=== PATIENT | male | born 1960 | race Caucasian/White ===

== ENCOUNTER 2018-05-24 11:52 | Emergency (ER) | payer OTHER ==
[~2018-05-24] VITALS: Ht 167.6 cm; Wt 79.4 kg
[2018-05-24 11:58] VITALS: BP 145/94
--- NOTE | 2018-05-24 12:10 | NUR ---
58 yo m bib w/ c/o abdominal pain and diarrhea/fevers x 3days. On sunday went fishing in [place], where he started feeling sick. Pt reports thin, watery, black stools. 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 Pt presents without fever at this time, pt states having fever last night of 100.4, Reports nausea but no vomiting. Reports that he took acetaminophen earlier in the week, but none today. aaox4. rr even and unlabored, lungs clear. bs active x4 with abd round tender. er md made aware. pt positioned for comfort. will continue to monitor. hx DM, HTN rx cipro, loperamida, butilhioscina
--- NOTE | 2018-05-24 12:27 | NUR ---
PT AMBULATED TO THE RESTROOM WITH STEADY GAIT
[2018-05-24] MEDS ORDERED: KETOROLAC 30 MG/ML VIAL IVP ONE (12:40)
[2018-05-24] MEDS ORDERED: ONDANSETRON 4 MG/2 ML VIAL IVP ONE (12:40)
--- NOTE | 2018-05-24 12:40 | NUR ---
Patient being evaluated by physician at bedside.
[2018-05-24 13:23] VITALS: BP 145/90
--- NOTE | 2018-05-24 13:23 | NUR ---
Patient discharged with v/s stable. Written and verbal after care instructions given and explained. Patient alert, oriented and verbalized understanding of instructions. Ambulatory with steady gait. All questions addressed prior to discharge. ID band removed. Patient advised to follow up with PMD. Rx of flagyl, motrin, zofran given. Patient educated on indication of medication including possible reaction and side effects. Opportunity to ask questions provided and answered.
== END 2018-05-24 13:23 | disposition home or self-care (01) ==
LOC: MED 11:52
DX: R10.13 Epigastric pain (principal); R11.0 Nausea; R19.7 Diarrhea, unspecified; R50.9 Fever, unspecified; E11.9 Type 2 diabetes mellitus without complications; I10 Essential (primary) hypertension
CPT/HCPCS: 82948; 96374; 96375; 99284; J1885; J2405

== ENCOUNTER 2018-12-21 16:37 | Emergency (ER) | payer OTHER ==
[~2018-12-21] VITALS: Ht 175.3 cm; Wt 108.9 kg
[2018-12-21 16:41] VITALS: BP 154/81
--- NOTE | 2018-12-21 16:44 | NUR ---
pt triaged and ambulated to er lobby.
--- NOTE | 2018-12-21 17:50 | NUR ---
PT BIB FAMILY FOR COUGH, HEADACHE, BACK PAIN AND BLE PAIN X2 DAYS. PT REPORTS DRY COUGH. RR EVEN, NON-LABORED, BREATH SOUNDS CLEAR THROUGHOUT, CAP REFIL <2 SEC. PT REPORTS CONSTANT PAIN AT 7/10. PT DENIES CP, SOB, N/V/D. VSS. ER MD TO SEE PT. MEDHX:DM, HTN, HLD RX:METFORMIN, SIMVISTATIN,
--- NOTE | 2018-12-21 17:50 | NUR ---
PATIENT AMBULATED TO BED 12
--- NOTE | 2018-12-21 19:15 | NUR ---
report recv'd from Kelli ECHAVARRIA
[2018-12-21] MEDS ORDERED: KETOROLAC 30 MG/ML VIAL IM ONE (19:25)
--- NOTE | 2018-12-21 19:31 | NUR ---
xray at bedside
[2018-12-21 20:28] VITALS: BP 142/73
--- NOTE | 2018-12-21 20:28 | NUR ---
Patient discharged with v/s stable. Written and verbal after care instructions given and explained. Patient alert, oriented and verbalized understanding of instructions. Ambulatory with steady gait. All questions addressed prior to discharge. ID band removed. Patient advised to follow up with PMD. Rx of GUAIATUSSIN, NAPROSYN, TAMIFLU given. Patient educated on indication of medication including possible reaction and side effects. Opportunity to ask questions provided and answered.
== END 2018-12-21 20:28 | disposition home or self-care (01) ==
LOC: MED 16:37
DX: J10.1 Influenza due to other identified influenza virus with other respiratory manifestations (principal); E11.9 Type 2 diabetes mellitus without complications; I10 Essential (primary) hypertension
CPT/HCPCS: 71045; 82948; 87804; 96372; 99284; J1885; Q0092

== ENCOUNTER 2020-08-06 19:25 | Emergency (ER) | payer OTHER ==
[~2020-08-06] VITALS: Ht 175.3 cm; Wt 108.4 kg
[2020-08-06 19:30] VITALS: BP 161/90
[2020-08-06] MEDS ORDERED: SIMETHICONE 40 MG/0.6 ML PO ONE (20:05)
[2020-08-06] MEDS ORDERED: HYDROcodone/APAP 10/325 MG 1 TAB TAB PO ONE (20:05)
[2020-08-06 21:04] LABS: BASOPHILS % (AUTO) 0.5 % (0.0-2.0); EOSINOPHILS % (AUTO) 0.8 % (0.0-4.0); HEMATOCRIT 43.7 % (36-52); LYMPHOCYTES # (AUTO) 1.4 K/uL (2.0-11.5); LYMPHOCYTES % (AUTO) 27.3 % (20.5-51.1); MEAN CORPUSCULAR HEMOGLOBIN 31 pg (27-31); MEAN CORPUSCULAR HGB CONC 34 g/dL (33-37); MONOCYTES # (AUTO) 0.5 K/uL (0.8-1.0); MONOCYTES % (AUTO) 8.9 % (1.7-9.3); NEUTROPHILS # (AUTO) 3.2 K/uL (1.8-7.7); NEUTROPHILS % (AUTO) 62.5 % (42.2-75.2); PLATELET COUNT (AUTO) 172 K/uL (140-450); RED BLOOD CELL COUNT(AUTO) 4.85 MIL/uL (4.20-6.10); RED CELL DISTRIBUTION WIDTH 13.6 % (11.6-13.7); WHITE BLOOD COUNT (AUTO) 5.2 K/uL (4.8-10.8)
[2020-08-06 21:11] LABS: APPEARANCE,URINE CLEAR (CLEAR); BILIRUBIN,URINE NEGATIVE (NEGATIVE); BLOOD, URINE NEGATIVE (NEGATIVE); COLOR,URINE YELLOW (YELLOW); LEUKOCYTE ESTERASE ,URINE NEGATIVE (NEGATIVE); NITRITE, URINE NEGATIVE (NEGATIVE); PH,URINE 5.5 (5.0-9.0); UGLUCOSE NEGATIVE (NEGATIVE)
[2020-08-06 21:16] LABS: ALBUMIN 3.6 g/dL (3.4-5.0); ANION GAP 14.4 (8-16); CARBON DIOXIDE 26.7 mmol/L (21-32); CREATININE 1.1 mg/dL (0.6-1.3); POTASSIUM 4.1 mmol/L (3.5-5.1); TOTAL BILIRUBIN 0.3 mg/dL (0.0-1.0)
[2020-08-06 22:08] VITALS: BP 154/80
== END 2020-08-06 22:08 | disposition home or self-care (01) ==
LOC: MED 19:25
DX: K29.70 Gastritis, unspecified, without bleeding (principal); E11.9 Type 2 diabetes mellitus without complications; E78.5 Hyperlipidemia, unspecified; I10 Essential (primary) hypertension
CPT/HCPCS: 36415; 71045; 74176; 80053; 81003; 83690; 84484; 85025; 93005; 99285; Q0092

== ENCOUNTER 2021-03-08 13:01 | Emergency (ER) | payer OTHER ==
[~2021-03-08] VITALS: Ht 175.3 cm; Wt 108.9 kg
[2021-03-08 13:03] VITALS: BP 101/43
--- NOTE | 2021-03-08 13:11 | NUR ---
Patient ambulated with steady gait to bed 2.
[2021-03-08] MEDS ORDERED: HYDROcodone/APAP 5/325 MG 1 TAB TAB PO ONE (13:35)
[2021-03-08] MEDS ORDERED: KETOROLAC 60 MG/2 ML VIAL IM ONE (13:35)
--- NOTE | 2021-03-08 13:52 | NUR ---
61 YEAR OLD MALE COMPLAINS OF BODYACHES X 2 DAYS. PT AOX4, BREATHING EVEN AND UNLABORED, SKIN WARM AND DRY. BED IN LOWEST POSITION, LOCKED, BED RAIL UPX1. PMH - HTN, DM2, HLD ALLERGIES - NKA
[2021-03-08 14:02] LABS: BASOPHILS # (AUTO) 0.1 K/uL (0.00-0.22); BASOPHILS % (AUTO) 1.7 % (0.0-2.0); EOSINOPHILS # (AUTO) 0.2 K/uL (0-0.4); EOSINOPHILS % (AUTO) 2.4 % (0.0-4.0); HEMATOCRIT 44.4 % (36-52); HEMOGLOBIN 15.3 g/dL (12.0-18.0); LYMPHOCYTES # (AUTO) 1.8 K/uL (2.0-11.5); LYMPHOCYTES % (AUTO) 22.9 % (20.5-51.1); MEAN CORPUSCULAR HEMOGLOBIN 31 pg (27-31); MEAN CORPUSCULAR HGB CONC 34 g/dL (33-37); MEAN CORPUSCULAR VOLUME 90.1 fL (80-94); MONOCYTES # (AUTO) 0.5 K/uL (0.8-1.0); MONOCYTES % (AUTO) 6.3 % (1.7-9.3); NEUTROPHILS # (AUTO) 5.2 K/uL (1.8-7.7); NEUTROPHILS % (AUTO) 66.7 % (42.2-75.2); PLATELET COUNT (AUTO) 223 K/uL (140-450); RED BLOOD CELL COUNT(AUTO) 4.93 MIL/uL (4.20-6.10); RED CELL DISTRIBUTION WIDTH 13.8 % (11.6-13.7); WHITE BLOOD COUNT (AUTO) 7.7 K/uL (4.8-10.8)
[2021-03-08 14:22] LABS: ALBUMIN 3.5 g/dL (3.4-5.0); ANION GAP 13.2 (8-16); CARBON DIOXIDE 26.8 mmol/L (21-32); TOTAL BILIRUBIN 0.4 mg/dL (0.0-1.0)
--- NOTE | 2021-03-08 14:34 | NUR ---
PER ERMD HE IS OKAY TO JUST HAVE URINE DIP WITHOUT URINALYSIS
[2021-03-08] MEDS ORDERED: ACET-8386 PO (14:35)
[2021-03-08 15:06] VITALS: BP 98/52
[2021-03-08 15:57] LABS: APPEARANCE,URINE CLEAR (CLEAR); BILIRUBIN,URINE NEGATIVE (NEGATIVE); BLOOD, URINE NEGATIVE (NEGATIVE); COLOR,URINE YELLOW (YELLOW); LEUKOCYTE ESTERASE ,URINE NEGATIVE (NEGATIVE); NITRITE, URINE NEGATIVE (NEGATIVE); PH,URINE 5.5 (5.0-9.0); UGLUCOSE TRACE (NEGATIVE)
== END 2021-03-08 15:05 | disposition home or self-care (01) ==
LOC: MED 13:01
DX: G89.29 Other chronic pain (principal); M54.9 Dorsalgia, unspecified; M79.18 Myalgia, other site; E11.9 Type 2 diabetes mellitus without complications; I10 Essential (primary) hypertension; E78.5 Hyperlipidemia, unspecified
CPT/HCPCS: 36415; 71045; 80053; 81003; 82550; 84484; 85025; 85651; 93005; 96372; 99285; J1885